=== PATIENT | female | born 1940 | race Caucasian/White ===

== ENCOUNTER 2019-05-24 22:14 | Emergency (ER) | payer OTHER ==
[~2019-05-24] VITALS: Ht 152.4 cm; Wt 81.6 kg
[~2019-05-24 22:14] MED LIST: ASA81 PO; BENA40TA8 PO; BIOF1TAB8 PO; FLUT1DIS3 INH; HYDR-4100 PO; HYDR25TA4 PO; OCUVITE PO; OMEP20CA10 PO; PLE2.5 PO; TEMA15CA5 PO
[2019-05-24 22:20] VITALS: BP_SYST 167
--- NOTE | 2019-05-24 23:24 | NUR ---
Patient to ER CHAIR to gown for evaluation. Side rails up. Report given to RONDA HUSSEIN.
--- NOTE | 2019-05-24 23:35 | NUR ---
79 y/o female presenting to ED w/ c/o of L. hand pain. Pt states she had a bug bite 1 hr prior to arrival. Pt states pain radiates to her 4th and 5th finger. Pt has no used anything for pain. No fever, n/v tingling or SOB noted. Will continue to monitor.
--- NOTE | 2019-05-24 23:40 | NUR ---
Dr. Vaz at bedside examining Pt.
[2019-05-24] MEDS ORDERED: DIPHENHYDRAMINE HCL 25 MG CAPSULE PO ONE (23:45)
--- NOTE | 2019-05-24 23:57 | NUR ---
Medication was given, pt tolerated well. No adverse reaction, will continue to monitor.
[2019-05-25 00:25] VITALS: BP_SYST 121
--- NOTE | 2019-05-25 00:25 | NUR ---
Patient given written and verbal discharge instructions and verbalizes understanding. ER MD discussed with patient the results and treatment provided. Patient in stable condition. ID arm band removed. Patient educated on pain management and to follow up with PMD. Pain Scale 0/10. Opportunity for questions provided and answered. Medication side effect fact sheet provided.
== END 2019-05-25 00:25 | disposition home or self-care (01) ==
LOC: SED 22:14
DX: S60.562A Insect bite (nonvenomous) of left hand, initial encounter (principal); J44.9 Chronic obstructive pulmonary disease, unspecified; K21.9 Gastro-esophageal reflux disease without esophagitis; I10 Essential (primary) hypertension; E78.00 Pure hypercholesterolemia, unspecified; Z86.79 Personal history of other diseases of the circulatory system; Z88.1 Allergy status to other antibiotic agents; Z79.82 Long term (current) use of aspirin; Z79.899 Other long term (current) drug therapy; W57.XXXA Bitten or stung by nonvenomous insect and other nonvenomous arthropods, initial encounter; Y93.89 Activity, other specified; Y92.89 Other specified places as the place of occurrence of the external cause; Y99.8 Other external cause status
CPT/HCPCS: 99282; Q0163